=== PATIENT | female | born 1995 | race Caucasian/White ===

== ENCOUNTER 2024-02-20 10:34 | Outpatient (CLI) | payer MEDICAID | END 2024-02-20 23:59 | disposition home or self-care (01) | LOC: MRI 10:34 | PROVIDERS: ATTEND Physical Medicine & Rehabilitation | DX: Z53.9 Procedure and treatment not carried out, unspecified reason (principal) ==

== ENCOUNTER 2024-04-19 15:14 | Emergency (ER) | payer MEDICAID ==
[~2024-04-19] VITALS: Ht 152.4 cm; Wt 109.1 kg
[2024-04-19 15:45] VITALS: BP 161/100; PULSE 97; RESP 18; TEMP 98.3; O2SAT 97
--- NOTE | 2024-04-21 10:11 | NUR ---
PT HAD MULTIPLE COMPLAINTS, UNABLE TO CONSOLE HER FOR ANY OF THE COMPLAINTS. SHE WAS DEMANDING A BED AND SHE DIDN'T GET ONE SO SHE LEFT. THIS ISSUE HAS BEEN GOING ON SINCE 2019, SHE HAS SEEN MULTIPLE SPECIALISTS WITHOUT IDENTIFICATION.
--- NOTE | 2024-04-21 10:28 | NUR ---
PT AND MOTHER VERY HOSTILE ON THE PHONE. AFTER HEARING THE SAME COMPLAINTS 3 TIMES, I CUT OFF THE CONVERSATION ANYTHING I SAID TO THEM DID NOT CONSOLE THEM.
== END 2024-04-19 17:08 | disposition left against medical advice (07) ==
LOC: ER 15:14
DX: M79.604 Pain in right leg (principal); Z53.21 Procedure and treatment not carried out due to patient leaving prior to being seen by health care provider